=== PATIENT | female | born 1970 | race Caucasian/White ===

== ENCOUNTER 2016-07-25 10:22 | Emergency (ER) | payer BC ==
[2016-07-25] MEDS ORDERED: Ketorolac 60 MG/2 ML SDV IM ONE (10:40)
--- NOTE | 2016-07-25 11:07 | EDM.PDOC ---
ED HPI LOWER BACK PAIN/INJURY - General Chief Complaint: Back Pain or Injury Stated Complaint: BACK AND HIP PAIN Time Seen by Provider: 07/25/16 10:56 Source of Information: Reports: Patient History Limitations: Reports: No limitations - History of Present Illness INITIAL COMMENTS - FREE TEXT/NARRATIVE: History of present illness: [46-year-old female presenting with complaints of acute onset lower back pain. Patient has any history of the sacral as well as pelvic pain which she occasionally wears a SI brace for. Patient indicates she was doing some yard work and bent at the odd angle hurting significantly loud pop and subsequently had pain that was intense and exquisite shooting down her lower back into her bilateral legs and headache transient feeling that she would lose continence. Patient denies any loss of continence of either bladder or bowel at any point in time. Indicates that she does have the sensation in the transient fashion that she was going to. This has since resolved] Review of systems: As per history of present illness and below otherwise all systems reviewed and negative. Past medical history: As per history of present illness and as reviewed below otherwise noncontributory. Surgical history: As per history of present illness and as reviewed below otherwise noncontributory. Social history: No reported history of drug or alcohol abuse. Family history: As per history of present illness and as reviewed below otherwise noncontributory. Physical exam: HEENT: Atraumatic, normocephalic, pupils reactive, negative for conjunctival pallor or scleral icterus, mucous membranes moist, throat clear, neck supple, nontender, trachea midline. Lungs: Clear to auscultation, breath sounds equal bilaterally, chest nontender. Heart: S1S2, regular, negative for clicks, rubs, or JVD. Abdomen: Soft, nondistended, nontender. Negative for masses or hepatosplenomegaly. Negative for costovertebral tenderness. Pelvis: Stable nontender. Genitourinary: Deferred. Rectal: Deferred. Extremities: Atraumatic, negative for cords or calf pain. Neurovascular unremarkable. Neuro: Awake, alert, oriented. Cranial nerves II through XII unremarkable. Cerebellum unremarkable. Motor and sensory unremarkable throughout. Exam nonfocal. Patient has is significant amount of guarding with age slightly altered gait secondary to pain. Diagnostics: [X-ray lumbar spine, x-ray of sacral and coccyx] Therapeutics: [Oral 60 mg IM, Norflex IM] Impression: [Low back pain] Plan: [ Medrol Dosepak, Norflex followup with PCP] Definitive disposition and diagnosis as appropriate pending reevaluation and review of above. - Related Data Allergies/ADRs: Allergies Allergy/AdvReac Type Severity Reaction Status Date / Time adhesive tape Allergy Rash Verified 07/25/16 10:32 Sulfa (Sulfonamide Allergy Edema Verified 07/25/16 10:32 Antibiotics) Home Meds: Home Meds Omeprazole 40 mg PO DAILY 06/11/16 [History] buPROPion HCl [Wellbutrin Xl] 150 mg PO DAILY 06/11/16 [History] Orphenadrine [Norflex] 100 mg PO BID #30 tab.er 07/25/16 [Rx] Phentermine HCl 1 tab PO DAILY 07/25/16 [History] methylPREDNISolone [Medrol] 4 mg PO ASDIRECTED #21 dospk 07/25/16 [Rx] Past Medical History Cardiovascular History: Reports: Other (see below) Other Cardiovascular History: Costochondritis Respiratory History: Reports: Other (see below) Other Respiratory History: states "I believe I have sleep apnea but has never been tested" Gastrointestinal History: Reports: Chronic diarrhea, GERD Genitourinary History: Reports: None [employer] History: Reports: Musculoskeletal History: Reports: Arthritis, Back pain, chronic, Osteoporosis Other Musculoskeletal History: degenerative joint disease Neurological History: Reports: Migraines Psychiatric History: Reports: Anxiety, Depression Endocrine/Metabolic History: Reports: Obesity/BMI 30+ - Infectious Disease History Infectious Disease History: Reports: Chicken pox - Past Surgical History Head Surgeries/Procedures: Reports: None GI Surgical History: Reports: Cholecystectomy Female Surgical History: Reports: section, Tubal ligation Musculoskeletal Surgical History: Reports: Shoulder surgery Social & Family History - Family History Family Medical History: Noncontributory - Tobacco Use Smoking Status *Q: Never Smoker Month Tobacco Last Used: quit smoking 16 yrs ago Second Hand Smoke Exposure: No - Caffeine Use Caffeine Use: Reports: None - Recreational Drug Use Recreational Drug Use: No ED ROS GENERAL - Review of Systems Review Of Systems: See Below (See history of present illness) ED EXAM,LOWER BACK PAIN/INJURY - Physical Exam Exam: See Below (The history of present illness) Course - Vital Signs Last Recorded V/S: Last Vital Signs Temp 36.9 C 07/25/16 10:30 Pulse 93 07/25/16 10:30 Resp 18 07/25/16 10:30 BP 126/96 H 07/25/16 10:30 Pulse Ox 96 07/25/16 10:30 - Orders/Labs/Meds Orders: Active Orders 24 hr Category Date Time Status Orphenadrine [Norflex] Med 07/25/16 10:45 Active 60 mg IM Q12H Medication Orders Orphenadrine Citrate (Norflex) 60 mg IM Q12H ANI Last Admin: 07/25/16 10:52 Dose: 60 mg Meds: Medications Generic Name Dose Route Start Last Admin Trade Name Freq PRN Reason Stop Dose Admin Orphenadrine Citrate 60 mg 07/25/16 10:45 07/25/16 10:52 Norflex IM 60 mg Q12H ANI Administration Discontinued Medications Generic Name Dose Route Start Last Admin Trade Name Freq PRN Reason Stop Dose Admin Ketorolac Tromethamine 60 mg 07/25/16 10:40 07/25/16 10:51 Toradol IM 07/25/16 10:41 60 mg ONETIME ONE Administration Departure - Departure Time of Disposition: 11:38 Disposition: Home, Self-Care 01 Condition: good Clinical Impression: Low back pain radiating to both legs Instructions: Back Pain, Adult, [id number] Referrals: Valorie Hernandez NP [Primary Care Provider] - Forms: ED Department Discharge Additional Instructions: The following information is given to patients seen in the emergency department who are being discharged to home. This information is to outline your options for follow-up care. We provide all patients seen in our emergency department with a follow-up referral. The need for follow-up, as well as the timing and circumstances, are variable depending upon the specifics of your emergency department visit. If you don't have a primary care physician on staff, we will provide you with a referral. We always advise you to contact your personal physician following an emergency department visit to inform them of the circumstance of the visit and for follow-up with them and/or the need for any referrals to a consulting specialist. The emergency department will also refer you to a specialist when appropriate. This referral assures that you have the opportunity for follow-up care with a specialist. All of these measure are taken in an effort to provide you with optimal care, which includes your follow-up. Under all circumstances we always encourage you to contact your private physician who remains a resource for coordinating your care. When calling for follow-up care, please make the office aware that this follow-up is from your recent emergency room visit. If for any reason you are refused follow-up, please contact the [facility] Emergency Department at and asked to speak to the emergency department charge nurse. Followup the primary care 1-2 days Take medication as directed Return to ED as needed as discussed - My Orders Last 24 Hours: My Active Orders 07/25/16 10:45 Orphenadrine [Norflex] 60 mg IM Q12H - Assessment/Plan Last 24 Hours: My Active Orders 07/25/16 10:45 Orphenadrine [Norflex] 60 mg IM Q12H
--- NOTE | 2016-07-25 11:28 | CR ---
EXAMINATION: Sacrum and coccyx and lumbar spine HISTORY: Pain COMPARISON: CT dated 09/22/2015 TECHNIQUE: AP and lateral views of the sacrum and coccyx and lumbar spine. FINDINGS: The lumbar spinal alignment is normal. The vertebral body heights appear well maintained. Moderate disc space narrowing is noted at L5-S1. No fracture or acute osseous abnormality present. The SI joints are symmetric. Bone mineralization is normal. The sacrum and coccyx appear intact. IMPRESSION: 1. Mild degenerative changes without acute findings.
[2016-07-25 11:57] VITALS: BP 121/81
== END 2016-07-25 11:57 | disposition home or self-care (01) ==
LOC: MW.ED 10:22
DX: M54.5 Low back pain (principal); K21.9 Gastro-esophageal reflux disease without esophagitis; M81.0 Age-related osteoporosis without current pathological fracture; F41.8 Other specified anxiety disorders; E66.9 Obesity, unspecified; Z68.39 Body mass index [BMI] 39.0-39.9, adult; Z90.49 Acquired absence of other specified parts of digestive tract; Z98.890 Other specified postprocedural states; Z79.899 Other long term (current) drug therapy; Z88.2 Allergy status to sulfonamides
CPT/HCPCS: 72100; 72220; 96372; 99283; J1885; J2360